=== PATIENT | male | born 1995 | race Two or more races ===

== ENCOUNTER 2024-09-01 07:17 | Emergency (ER) | payer BC, OTHER ==
[~2024-09-01] VITALS: Ht 188 cm; Wt 101.6 kg
[2024-09-01 07:40] VITALS: BP 129/66; PULSE 65; RESP 18; TEMP 97.5; O2SAT 99
[2024-09-01] MEDS ORDERED: NAPROXEN 500 MG TAB PO ONE (08:30)
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
[2024-09-01 08:56] LABS: Urine Bacteria None Seen /hpf (None Seen)
[2024-09-01] MEDS ORDERED: DICL50TA2 PO (09:40)
[2024-09-01 09:42] LABS: Urine Blood Negative /uL (Negative); Urine Clarity Clear (Clear); Urine Color Light-Yellow (Yellow); Urine Protein, UAD Negative (Negative); Urine Specific Gravity 1.019 (1.001-1.035); Urine Squamous Epithelial Cell None Seen /hpf (<5); Urine Urobilinogen Normal (Negative); Urine WBC < 1 /HPF (0-3); Urine pH 5.5 (5.0-9.0)
== END 2024-09-01 08:46 | disposition left against medical advice (07) ==
LOC: ER 07:17
DX: N45.1 Epididymitis (principal)
CPT/HCPCS: 81001